=== PATIENT | female | born 1985 | race Hispanic/Latino ===

== ENCOUNTER 2019-12-31 21:02 | Emergency (ER) | payer SELFPAY ==
[~2019-12-31] VITALS: Ht 157.5 cm; Wt 70.8 kg
[2019-12-31] MEDS ORDERED: FAMOTIDINE 20 MG/2 ML VIAL IV STA (21:13)
[2019-12-31] MEDS ORDERED: ONDANSETRON HCL INJ 2MG/ML 2ML 2 MG/ML VIAL IV STA (21:13)
--- NOTE | 2019-12-31 21:22 | Emergency Department Note ---
History of Present Illnes History of Present Illness Chief Complaint: Abdominal Complaints History of Present Illness This is a 34 year old female epigastric pain that started approx 3 days ago with gradual worsening. Patient states she is 7 weeks . C/o nausea and vomiting. A1. . Historian: Patient Arrival Mode: Car Continuous [employer] Supervisor Required: No Onset (how long ago): day(s) (3) Location: epigastric Quality: pain Radiation: Reports non-radiation Severity: moderate Onset quality: gradual Duration (how long): day(s) (3) Timing of current episode: constant Progression: worsening Chronicity: new Context: Reports other (7 weeks gestation); Denies recent illness, Denies recent surgery, Denies trauma/injury, Denies new medications Relieving factors: none Exacerbating factors: eating Associated symptoms: Reports nausea/vomiting Treatments prior to arrival: none Past Medical/Family History Physician Review I have reviewed the patient's past medical and family history. Any updates have been documented here. Past Medical History Recent Fever: No Clinical Suspicion of Infectio: No New/Unexplained Change in Ment: No Past Surgical History: Cholecysctectomy Other Surgery: HERNIA REPAIR Social History Smoking Cessation: Never Smoker Alcohol Use: None Any Illegal Drug Use: No Family History Family history of heart diseas: No Other Last Tetanus: UNK Review of Systems Review of Systems Constitutional: Reports no symptoms EENTM: Reports no symptoms Cardiovascular: Reports no symptoms Respiratory: Reports no symptoms Gastrointestinal: Reports as per HPI Genitourinary: Reports as per HPI Musculoskeletal: Reports no symptoms Integumentary: Reports no symptoms Neurological: Reports no symptoms Psychological: Reports no symptoms Endocrine: Reports no symptoms Hematological/Lymphatic: Reports no symptoms Review of other systems: All other systems negative Physical Exam Related Data Allergies: Coded Allergies: No Known Allergies (Unverified , 07/05/15) Triage Vital Signs Vital Signs Date Time Temp Pulse Resp B/P (MAP) Pulse Ox O2 Delivery O2 Flow Rate FiO2 12/31/19 21:15 98.8 74 20 123/55 100 Room Air Vital signs reviewed: Yes Physical Exam CONSTITUTIONAL Constitutional: Present well-developed, Present well-nourished; Absent distressed HENT HENT: Present normocephalic, Present atraumatic, Present oropharynx clear/moist, Present nose normal HENT L/R: Present left ext ear normal, Present right ext ear normal EYES Eyes: Reports PERRL, Reports conjunctivae normal NECK Neck: Present ROM normal PULMONARY Pulmonary: Present effort normal, Present breath sounds normal CARDIOVASCULAR Cardiovascular: Present regular rhythm, Present heart sounds normal, Present capillary refill normal, Present normal rate GASTROINTESTINAL Abdominal: Present soft, Present bowel sounds normal, Present tender (mild epigastric tenderness) GENITOURINARY Genitourinary: Present exam deferred SKIN Skin: Present warm, Present dry MUSCULOSKELETAL Musculoskeletal: Present ROM normal NEUROLOGICAL Neurological: Present alert, Present oriented x 3, Present no gross motor or sensory deficits PSYCHOLOGICAL Psychological: Present mood/affect normal, Present judgement normal Results Laboratory Laboratory Laboratory Tests Test 12/31/19 21:17 12/31/19 21:00 White Blood Count 7.63 x10e3/uL (4.8-10.8) Red Blood Count 3.90 x10e6/uL (3.6-5.1) Hemoglobin 10.3 g/dL (12.0-16.0) Hematocrit 33.1 % (34.2-44.1) Mean Corpuscular Volume 84.9 fL (81-99) Mean Corpuscular Hemoglobin 26.4 pg (28-32) Mean Corpuscular Hemoglobin Concent 31.1 g/dL (31-35) Red Cell Distribution Width 15.8 % (11.7-14.4) Platelet Count 246 x10e3/uL (140-360) Neutrophils (%) (Auto) 58.6 % (38.7-80.0) Lymphocytes (%) (Auto) 28.6 % (18.0-39.1) Monocytes (%) (Auto) 5.9 % (4.4-11.3) Eosinophils (%) (Auto) 6.0 % (0.0-6.0) Basophils (%) (Auto) 0.5 % (0.0-1.0) Neutrophils # (Auto) 4.5 (2.1-6.9) Lymphocytes # (Auto) 2.2 (1.0-3.2) Monocytes # (Auto) 0.5 (0.2-0.8) Eosinophils # (Auto) 0.5 (0.0-0.4) Basophils # (Auto) 0.0 (0.0-0.1) Absolute Immature Granulocyte (auto 0.03 x10e3/uL (0-0.1) Sodium Level 137 mmol/L (136-145) Potassium Level 3.7 mmol/L (3.5-5.1) Chloride Level 105 mmol/L (98-107) Carbon Dioxide Level 24 mmol/L (22-29) Anion Gap 11.7 mmol/L (8-16) Blood Urea Nitrogen 9 mg/dL (7-26) Creatinine 0.62 mg/dL (0.57-1.11) Estimat Glomerular Filtration Rate > 60 ML/MIN (60-) BUN/Creatinine Ratio 15 (6-25) Glucose Level 94 mg/dL (74-118) Calcium Level 8.7 mg/dL (8.4-10.2) Total Bilirubin 0.2 mg/dL (0.2-1.2) Aspartate Amino Transf (AST/SGOT) 16 IU/L (5-34) Alanine Aminotransferase (ALT/SGPT) 15 IU/L (0-55) Alkaline Phosphatase 48 IU/L (40-150) Total Protein 7.0 g/dL (6.5-8.1) Albumin 3.8 g/dL (3.5-5.0) Globulin 3.2 g/dL (2.3-3.5) Albumin/Globulin Ratio 1.2 (0.8-2.0) Amylase Level 68 U/L (25-125) Lipase 32 U/L (8-78) Urine Color Yellow (YELLOW) Urine Clarity Sl cloudy (CLEAR) Urine pH 7 (5 - 7) Urine Specific [place] 1.025 (1.010-1.025) Urine Protein Negative (NEGATIVE) Urine Glucose (UA) Negative (NEGATIVE) Urine Ketones Negative (NEGATIVE) Urine Blood Negative (NEGATIVE) Urine Nitrite Negative (NEGATIVE) Urine Bilirubin Negative (NEGATIVE) Urine Urobilinogen 0.2 mg/dL (0.2 - 1) Urine Leukocyte Esterase Trace (NEGATIVE) Urine RBC 0-5 /HPF (0-5) Urine WBC 11-20 /HPF (0-5) Urine Epithelial Cells Many /LPF (NONE) Urine Bacteria Moderate /HPF (NONE) Lab results reviewed: Yes Assessment & Plan Medical Decision Making MDM pt with epigastric pain, n/v cbc, cmp, amylase, lipase, ua, ordered to eval for elevated lft's, pancreatitis, electrolyte abnormality, uti pepcid 20 mg iv ordered zofran 4 mg iv ordered Assessment & Plan Final Impression: (1) Gastritis (2) UTI (urinary tract infection) Last Vital Signs Date Time Temp Pulse Resp B/P (MAP) Pulse Ox O2 Delivery O2 Flow Rate FiO2 12/31/19 21:15 98.8 74 20 123/55 100 Room Air Home Meds No Active Prescriptions or Reported Meds Medications in the ED Famotidine 20 mg NOW STAT IV ; Start 12/31/19 at 21:13; Stop 12/31/19 at 21:14; Status UNV Ondansetron HCl 4 mg NOW STAT IV ; Start 12/31/19 at 21:13; Stop 12/31/19 at 21:14; Status UNV ESCOBAR ESTRADA MD Dec 31, 2019 21:22
[2019-12-31 21:25] LABS: BASOPHILS % 0.5 % (0.0-1.0); EOSINOPHILS # (AUTO) 0.5 (0.0-0.4); HEMATOCRIT 33.1 % (34.2-44.1); HEMOGLOBIN 10.3 g/dL (12.0-16.0); LYMPHOCYTES # (AUTO) 2.2 (1.0-3.2); LYMPHOCYTES % 28.6 % (18.0-39.1); MEAN CORPUSCULAR HEMOGLOBIN 26.4 pg (28-32); MEAN CORPUSCULAR HGB CONC 31.1 g/dL (31-35); MEAN CORPUSCULAR VOLUME 84.9 fL (81-99); MONOCYTES # (AUTO) 0.5 (0.2-0.8); MONOCYTES % 5.9 % (4.4-11.3); NEUTROPHILS # (AUTO) 4.5 (2.1-6.9); NEUTROPHILS % 58.6 % (38.7-80.0); PLATELET COUNT 246 x10e3/uL (140-360); RED CELL DISTRIBUTION WIDTH 15.8 % (11.7-14.4)
[2019-12-31 21:29] LABS: BILIRUBIN,URINE NEGATIVE (NEGATIVE); CLARITY,URINE SL CLOUDY (CLEAR); COLOR,URINE YELLOW (YELLOW); KETONES,URINE NEGATIVE (NEGATIVE); LEUKOCYTE ESTERASE ,URINE TRACE (NEGATIVE); NITRITE,URINE NEGATIVE (NEGATIVE); PROTEIN,URINE DIPSTICK NEGATIVE (NEGATIVE); URINE UROBILINOGEN 0.2 mg/dL (0.2 - 1)
[2019-12-31 21:36] LABS: BACTERIA,URINE MODERATE /HPF; EPITHELIAL CELLS,URINE MANY /LPF; RBC,URINE 0-5 /HPF (0-5)
[2019-12-31 21:44] LABS: ALANINE AMINOTRANSFERASE 15 IU/L (0-55); ALBUMIN 3.8 g/dL (3.5-5.0); ALBUMIN/GLOBULIN RATIO 1.2 (0.8-2.0); ALKALINE PHOSPHATASE 48 IU/L (40-150); ANION GAP 11.7 mmol/L (8-16); BLOOD UREA NITROGEN 9 mg/dL (7-26); BUN/CREATININE RATIO 15 (6-25); CALCIUM 8.7 mg/dL (8.4-10.2); CARBON DIOXIDE 24 mmol/L (22-29); CHLORIDE 105 mmol/L (98-107); CREATININE, SERUM 0.62 mg/dL (0.57-1.11); EST GLOMERULAR FILTRATION RATE > 60 ML/MIN (60-); GLUCOSE 94 mg/dL (74-118); POTASSIUM 3.7 mmol/L (3.5-5.1); SODIUM 137 mmol/L (136-145)
[2019-12-31 21:50] LABS: AMYLASE 68 U/L (25-125); LIPASE 32 U/L (8-78)
--- OUTSIDE RECORDS SUMMARY | 2020-01-01 09:24 | XMS REPORT | Clinical Summary ---
Author Author [facility] Organization [facility] Address Unknown Phone Unavailable Care Team Providers Care Medical Officer Name Role Phone Asked, No Pcp PCP Unavailable Allergies No Known Active Allergies Medications No known medications Active Problems Not on file Surgical History Surgery Date Site/Laterality Comments HERNIA REPAIR Medical History Medical History Date Comments H. pylori infection Social History Date Tobacco Use Types Packs/Day Years Used Never Assessed Sex Assigned at Date Recorded Not on file Last Filed Vital Signs Not on file Plan of Treatment Health Maintenance Due Date Last Done Comments CERVICAL CANCER SCREENING 2005 INFLUENZA VACCINE 10/13/2019 Results Not on fileafter 12/31/2018 Advance Directives For more information, please contact: [phone] Patient Recovery Room Rn Explanation Type Date Recorded Advance Directives, Living Will and Medical Power of Barbering Teacher
--- OUTSIDE RECORDS SUMMARY | 2020-01-01 09:25 | XMS REPORT | Continuity of Care Document ---
Author Author [facility] t Organization [facility] Address [address] [place] [address] Phone Unavailable Care Team Providers Care Winemaker Name Role Phone NO, PCP PCP Unavailable Marco A CAPONE, Josseline Rodríguez Attphys Doctor Unassigned, Name No Attphys Unavailable Payers Payer Name Policy Type Policy Number Effective Date Expiration Date S ource Self Pay NA [facility] Problems Condition Name Condition Details Condition Category Status Onset Date Resolution Date Last Treatment Date Treating Clinician Comments Source Gastritis Problem Active [facility] Urinary tract infection Problem Active [facility] Allergies, Adverse Reactions, Alerts Allergy Name Allergy Type Status Severity Reaction(s) Onset Date Inacti ve Date Treating Clinician Comments Source No Known Allergies DA Active U 2019-08-08 00:00:00 [facility] No Known Allergies DA Active U 2019-07-24 00:00:00 [facility] No Known Allergies DA Active U 2015-08-04 00:00:00 [facility] Social History Social Habit Start Date Stop Date Quantity Comments Source Sex Assigned At Alanis Perez Medications This patient has no known medications. Vital Signs Vital Name Observation Time Observation Value Comments Source Weight 2019-12-31 21:15:00 156 [lb_av] [facility] BMI (Body Mass Index) 2019-12-31 21:15:00 28.5 kg/m2 [facility] Procedures This patient has no known procedures. Plan of Care Planned Activity Planned Date Details Comments Source Future Scheduled Test 2019-10-13 00:00:00 INFLUENZA VACCINE [code = INFLUENZA VACCINE] Vince Perez Future Scheduled Test 2005 00:00:00 Screening for raul gnant neoplasm of cervix (procedure) [code = 472934479] Vince Castano t Instructions Heartburn [facility] Instructions Urinary Tract Infection - Women [facility] Encounters Start Date/Time End Date/Time Encounter Type Admission Type Attendi [facility] Care Department Encounter ID Source 2019-12-31 21:07:00 2019-12-31 22:34:00 Departed Emergency Room [facility] [id number] [facility] 2019-12-18 08:46:41 2019-12-18 10:50:38 Initial Visit Anne Strickland [facility] [employer]ULPER OPERATOR [facility] [id number] 2019-12-18 00:00:00 2019-12-18 00:00:00 Orders Only D octor Unassigned, [place] [id number] 2019-10-23 00:00:00 2019-10-23 00:00:00 Telephone Anne Strickland [facility]UL[employer] OPERATOR [facility] [id number] Results Test Description Test Time Test Comments Results Result Comments Source Blood leukocytes automated count (number/volume) 2019-12-31 21:17:00 Test Item White Blood Count (test code = 6690-2) 7.63 4.8-10.8 [facility] count (number/volume)2019-12-31 21:17:00* Test Item Value Reference Range Interpretation Comments Red Blood Count (test code = 789-8) 3.90 3.6-5.1 [facility] hemoglobin measurement (moles/volume)2019-12-31 21:17:00* Test Item Value Reference Range Interpretation Comments Hemoglobin (test code = 49255-8) 10.3 12.0-16.0 [facility] CenterAutomated blood hematocrit (volume fraction)2019-12-31 21:17:00* Test Item Value Reference Range Interpretation Comments Hematocrit (test code = 4544-3) 33.1 34.2-44.1 [facility] CenterAutomated erythrocyte mean corpuscular sdkdkx8422-10-46 21:17:00* Test Item Value Reference Range Interpretation Comments Mean Corpuscular Volume (test code = 787-2) 84.9 81-99 [facility] CenterAutomated erythrocyte mean corpuscular hemoglobin (mass per erythrocyte)2019-12-31 21:17:00* Test Item Value Reference Range Interpretation Comments Mean Corpuscular Hemoglobin (test code = 785-6) 26.4 28-32 [facility] CenterAutomated erythrocyte mean corpuscular hemoglobin concentration measurement (mass/volume)2019-12-31 21:17:00* Test Item Value Reference Range Interpretation Comments Mean Corpuscular Hemoglobin Concent (test code = 786-4) 31.1 31-35 [facility] CenterRDW TazFz-Pyq1471-76-19 21:17:00* Test Item Value Reference Range Interpretation Comments Red Cell Distribution Width (test code = 42151-9) 15.8 11.7 -14.4 [facility] CenterAutomated blood platelet count (count/volume)2019-12-31 21:17:00* Test Item Value Reference Range Interpretation Comments Platelet Count (test code = 777-3) 246 140-360 [facility] CenterAutomated blood segmented neutrophil count as percentage of total klvfvgarwz9605-92-43 21:17:00* Test Item Value Reference Range Interpretation Comments Neutrophils (%) (Auto) (test code = 33287-3) 58.6 38.7-80.0 [facility] CenterAutomated blood lymphocyte count as percentage ot total zjttcfprlv4769-55-62 21:17:00* Test Item Value Reference Range Interpretation Comments Lymphocytes (%) (Auto) (test code = 736-9) 28.6 18.0-39.1 [facility] CenterAutomated blood monocyte count as percentage of total zhtwntlprb6052-19-32 21:17:00* Test Item Value Reference Range Interpretation Comments Monocytes (%) (Auto) (test code = 5905-5) 5.9 4.4-11.3 [facility] CenterAutomated blood eosinophil count as percentage of total idscqzcygf2223-91-56 21:17:00* Test Item Value Reference Range Interpretation Comments Eosinophils (%) (Auto) (test code = 713-8) 6.0 0.0-6.0 [facility] CenterAutomated blood basophil count as percentage of total bmdzxmyxox4711-11-89 21:17:00* Test Item Value Reference Range Interpretation Comments Basophils (%) (Auto) (test code = 706-2) 0.5 0.0-1.0 [facility] CenterFluoroscopic procedure less than one hour hlsordof2349-20-35 21:17:00* Test Item Value Reference Range Interpretation Comments IM GRANULOCYTES % (test code = IM GRANULOCYTES %) 0.4 0.0- 1.0 [facility] count 2019-12-31 21:17:00* Test Item Value Reference Range Interpretation Comments Neutrophils # (Auto) (test code = 751-8) 4.5 2.1-6.9 [facility] CenterBlood lymphocytes count (number/volume) 2019-12-31 21:17:00* Test Item Value Reference Range Interpretation Comments Lymphocytes # (Auto) (test code = 56291-3) 2.2 1.0-3.2 [facility] CenterBlood monocytes automated count (number/volume)2019-12-31 21:17:00* Test Item Value Reference Range Interpretation Comments Monocytes # (Auto) (test code = 742-7) 0.5 0.2-0.8 [facility] CenterAutomated blood eosinophil count 2019-12-31 21:17:00* Test Item Value Reference Range Interpretation Comments Eosinophils # (Auto) (test code = 711-2) 0.5 0.0-0.4 [facility] CenterAutomated blood basophil count (count/volume)2019-12-31 21:17:00* Test Item Value Reference Range Interpretation Comments Basophils # (Auto) (test code = 704-7) 0.0 0.0-0.1 [facility] CenterFluoroscopic procedure less than one hour bgwhteiv4687-85-28 21:17:00* Test Item Value Reference Range Interpretation Comments Absolute Immature Granulocyte (auto (cristina t code = Absolute Immature Granulocyte (auto) 0.03 0-0.1 [facility] sodium measurement (moles/volume)2019-12-31 21:17:00* Test Item Value Reference Range Interpretation Comments Sodium Level (test code = 2951-2) 137 136-145 [facility]er[facility] plasma potassium measurement (moles/volume)2019-12-31 21:17:00* Test Item Value Reference Range Interpretation Comments Potassium Level (test code = 2823-3) 3.7 3.5-5.1 [facility] plasma chloride measurement (moles/volume)2019-12-31 21:17:00* Test Item Value Reference Range Interpretation Comments Chloride Level (test code = 2075-0) 105 98-107 [facility]erum or plasma carbon dioxide, total measurement (moles/volume)2019-12-31 21:17:00* Test Item Value Reference Range Interpretation Comments Carbon Dioxide Level (test code = 2028-9) 24 22-29 [facility]erum or plasma anion mpp2889-03-96 21:17:00* Test Item Value Reference Range Interpretation Comments Anion Gap (test code = 92915-7) 11.7 8-16 [facility] plasma urea nitrogen measurement (mass/volume)2019-12-31 21:17:00* Test Item Value Reference Range Interpretation Comments Blood Urea Nitrogen (test code = 3094-0) 9 7-26 [facility]er[facility] or plasma creatinine measurement (mass/volume)2019-12-31 21:17:00* Test Item Value Reference Range Interpretation Comments Creatinine (test code = 2160-0) 0.62 0.57-1.11 [facility]er[facility] or plasma urea nitrogen/creatinine mass oieoe5911-48-87 21:17:00* Test Item Value Reference Range Interpretation Comments BUN/Creatinine Ratio (test code = 3097-3) 15 6-25 [facility] CenterEstimated glomerular filtration rate (GFR) dqubcxakidsag8771-24-05 21:17:00* Test Item Value Reference Range Interpretation Comments Estimat Glomerular Filtration Rate (test code = 358004333) > 60 >60 Ranges were taken from the National Kidney Disease Education Program and the [facility] literature.Reference ranges:60 or greater: Vygkkb53-13 ( for 3 consecutive months): Chronic kidney disease 15 or less: Kidney failureP[facility] Medical CenterGlucose bpjpmtqthma1234-62-07 21:17:00* Test Item Value Reference Range Interpretation Comments Glucose Level (test code = KAB4171) 94 74-118 [facility]er[facility] or plasma calcium measurement (mass/volume)2019-12-31 21:17:00* Test Item Value Reference Range Interpretation Comments Calcium Level (test code = 14811-4) 8.7 8.4-10.2 [facility]er[facility] plasma total bilirubin measurement (mass/volume)2019-12-31 21:17:00* Test Item Value Reference Range Interpretation Comments Total Bilirubin (test code = 1975-2) 0.2 0.2-1.2 [facility] CenterFluoroscopic procedure less than one hour fviylyjf6983-45-86 21:17:00* Test Item Value Reference Range Interpretation Comments Aspartate Amino Transf (AST/SGOT) (test code = Aspartate Amino Transf (AST/SGOT)) 16 5-34 [facility]erum or plasma alanine aminotransferase measurement (enzymatic activity/volume)2019-12-31 21:17:00* Test Item Value Reference Range Interpretation Comments Alanine Aminotransferase (ALT/SGPT) (test code = 1742-6) 15 0-55 [facility]erum or plasma protein measurement (mass/volume)2019-12-31 21:17:00* Test Item Value Reference Range Interpretation Comments Total Protein (test code = 2885-2) 7.0 6.5-8.1 [facility]erum or plasma albumin measurement (mass/volume)2019-12-31 21:17:00* Test Item Value Reference Range Interpretation Comments Albumin (test code = 1751-7) 3.8 3.5-5.0 [facility] CenterPlasma globulin measurement (mass/volume) 2019-12-31 21:17:00* Test Item Value Reference Range Interpretation Comments Globulin (test code = 20557-3) 3.2 2.3-3.5 [facility]erum or plasma albumin/globulin mass hwagz8243-49-12 21:17:00* Test Item Value Reference Range Interpretation Comments Albumin/Globulin Ratio (test code = 1759-0) 1.2 0.8-2.0 [facility] Hospitalerum or plasma alkaline phosphatase measurement (enzymatic activity/volume)2019-12-31 21:17:00* Test Item Value Reference Range Interpretation Comments Alkaline Phosphatase (test code = 6768-6) 48 40-150 [facility]erum or plasma amylase measurement (enzymatic activity/volume)2019-12-31 21:17:00* Test Item Value Reference Range Interpretation Comments Amylase Level (test code = 1798-8) 68 25-125 [facility]erum or plasma lipase measurement (enzymatic activity/volume)2019-12-31 21:17:00* Test Item Value Reference Range Interpretation Comments Lipase (test code = 3040-3) 32 8-78 [facility] CenterUrine color rhekqihchhgvu0625-89-06 21:00:00* Test Item Value Reference Range Interpretation Comments Urine Color (test code = 5778-6) YELLOW YELLOW [facility] CenterUrine djqlnlt2410-40-19 21:00:00* Test Item Value Reference Range Interpretation Comments Urine Clarity (test code = 25438-9) SL CLOUDY CLEAR [facility] Hospitalpecific gravity of Urine by Test strip 2019-12-31 21:00:00* Test Item Value Reference Range Interpretation Comments Urine Specific [place] (test code = 5811-5) 1.025 1.010-1.02 5 [facility] CenterUrine pH measurement by automated test mhwqg3173-57-40 21:00:00* Test Item Value Reference Range Interpretation Comments Urine pH (test code = 92470-7) 7 5-7 [facility] CenterUrine leukocyte esterase detection by mwxahsdo0208-89-00 21:00:00* Test Item Value Reference Range Interpretation Comments Urine Leukocyte Esterase (test code = 5799-2) TRACE NEGATIVE [facility] CenterUrine nitrite khvnwthth2987-62-55 21:00:00* Test Item Value Reference Range Interpretation Comments Urine Nitrite (test code = 59716-5) NEGATIVE NEGATIVE [facility] CenterUrine protein measurement by test strip (mass/volume)2019-12-31 21:00:00* Test Item Value Reference Range Interpretation Comments Urine Protein (test code = 5804-0) NEGATIVE NEGATIVE [facility] CenterUrine glucose rnkpsppvp2971-70-88 21:00:00* Test Item Value Reference Range Interpretation Comments Urine Glucose (UA) (test code = 2349-9) NEGATIVE NEGATIVE [facility] CenterUrine ketones detection by automated test ljcdf2116-03-88 21:00:00* Test Item Value Reference Range Interpretation Comments Urine Ketones (test code = 09099-5) NEGATIVE NEGATIVE [facility] CenterUrine urobilinogen measurement by test strip (mass/volume)2019-12-31 21:00:00* Test Item Value Reference Range Interpretation Comments Urine Urobilinogen (test code = 54648-2) 0.2 0.2-1 [facility] CenterUrine total bilirubin measurement (mass/volume)2019-12-31 21:00:00* Test Item Value Reference Range Interpretation Comments Urine Bilirubin (test code = 1978-6) NEGATIVE NEGATIVE [facility] CenterUrine erythrocytes kxbcxxyvx8643-97-03 21:00:00* Test Item Value Reference Range Interpretation Comments Urine Blood (test code = 57227-3) NEGATIVE NEGATIVE [facility] CenterAutomated urine sediment leukocyte count by microscopy (number/high power field)2019-12-31 21:00:00* Test Item Value Reference Range Interpretation Comments Urine WBC (test code = 5821-4) 11-20 0-5 [facility] CenterErythrocytes detection in urine sediment by light qcefzlxjjs9745-75-88 21:00:00* Test Item Value Reference Range Interpretation Comments Urine RBC (test code = 49943-4) 0-5 0-5 [facility] CenterBacteria detection in urine sediment by light ibapikkdha4966-17-34 21:00:00* Test Item Value Reference Range Interpretation Comments Urine Bacteria (test code = 89085-0) MODERATE NONE [facility] CenterEpithelial cells detection in urine sediment by light wlybdpzkck9862-25-95 21:00:00* Test Item Value Reference Range Interpretation Comments Urine Epithelial Cells (test code = 88675-6) MANY NONE [facility]- DUP AB/PEL/SC/[id number] 20:22:00 Name: SAULJADE [facility] : 1985 Age/S: 34 / F [address] [place] [address] Blvd Unit #: [id number] Loc: ALEXANDER Ervin [address] Phys: Winifred Gomez [employer]PER[employer] Acct: [id number] Di s Date: Status: REG ER PHONE #: Exam Date: 10/17/20192013 FAX #: Reason: see US PREG 1st TRIMTR EXAMS: CPT CODE: [id number] DUP AB/PEL/SC /LTD 55655 PROCEDURE: PELVIC ULTRASO UND INDICATION: 6 weeks with vaginal bleeding. Pelvic cr amping. COMPARISON: 10/07/2019 ultrasound T RANSABDOMINAL SCAN: Uterus measures 7.6 x 5.4 x 5.[address] ripe thickness of 0.7 cm. Right ovary appears normal measuring 2.9 x 2.1 x 1.6 cm. Left ovary appears normal measuring 2.7 x 0.9 x 2.3 cm. Arteri al waveforms are documented to both ovaries. No adnexal mass identified. TRANSVAGINAL SCAN: Transvaginal exam was performed for better visualization of the pelvic structures. No free pelvic fluid is seen. The uterus measures 9.7 x 5.3 x 6.3 cm with endometrial stripe thickness o f 1.2 cm. No intrauterine is identified. The right ovary appea rs normal measuring 3 x 2 x 3 cm with arterial waveforms documented. Left ovary is not visualized. No adnexal mass identified. IMP RESSION: Normal pelvic ultrasound. No intrauterine or extrauterine preg jonnathan identified. Correlate with trend of quantitative beta-hCG levels. SL: SG-H at 2021 Reported and signed by: Krishna Carreon M.D. CC: [facility]; Julee Gomez Technologist: Aspen Kerns RDMS(AB)(OB) Trnscb Date/Time: 10/16 (2021) [id number] Orig Print D/T: S: 10/17/2019 () Probe: PAGE 1 Signed Report - US PELVIS [id number] 20:22:00 Name: SAULJADE [facility] : 1985 Age/S: 34 / F [address] [place], [place] [address]vd Unit #: [id number] Loc: ALEXANDER Ervin [address] Phys: Winifred Gomez Acct: [id number] Di s Date: Status: REG ER PHONE #: Exam Date: 10/17/20192012 FAX #: Reason: VAGINAL BLEEDING/CRAMPING EXAMS: CPT CODE: [id number] US PELVIS COM PLETE [id number] PROCEDURE: PELVIC ULTRASO UND INDICATION: 6 weeks with vaginal bleeding. Pelvic cr amping. COMPARISON: 10/07/2019 ultrasound T RANSABDOMINAL SCAN: Uterus measures 7.6 x 5.4 x 5.[address] ripe thickness of 0.7 cm. Right ovary appears normal measuring 2.9 x 2.1 x 1.6 cm. Left ovary appears normal measuring 2.7 x 0.9 x 2.3 cm. Arteri al waveforms are documented to both ovaries. No adnexal mass identified. TRANSVAGINAL SCAN: Transvaginal exam was performed for better visualization of the pelvic structures. No free pelvic fluid is seen. The uterus measures 9.7 x 5.3 x 6.3 cm with endometrial stripe thickness o f 1.2 cm. No intrauterine is identified. The right ovary appea rs normal measuring 3 x 2 x 3 cm with arterial waveforms documented. Left ovary is not visualized. No adnexal mass identified. IMP RESSION: Normal pelvic ultrasound. No intrauterine or extrauterine preg jonnathan identified. Correlate with trend of quantitative beta-hCG levels. SL: SG-H at 2021 Reported and signed by: Krishna Carreon M.D. CC: [facility]; Julee Gomez Technologist: Aspen Kerns RDMS(AB)(OB) Trnscb Date/Time: 10/16 (2021) [id number] Orig Print D/T: S: 10/17/2019 () Probe: PAGE 1 Signed Report - US TRANSVAGINAL NON [id number] 20:22:00 Name: JADE HUGHES [facility] : 1985 Age/S: 34 / F [address] [place] [address] Blvd Unit #: [id number] Loc: ALEXANDER Ervin [address] Phys: Winifred Gomez Acct: [id number] Di s Date: Status: REG ER PHONE #: Exam Date: 10/17/20192013 FAX #: [phone] Reason: see US PREG 1st TRIMTR EXAMS: CPT CODE: [id number] [place] [id number] PROCEDURE: PELVIC ULTRASO UND INDICATION: 6 weeks with vaginal bleeding. Pelvic cr amping. COMPARISON: 10/07/2019 ultrasound T RANSABDOMINAL SCAN: Uterus measures 7.6 x 5.4 x 5.[address] ripe thickness of 0.7 cm. Right ovary appears normal measuring 2.9 x 2.1 x 1.6 cm. Left ovary appears normal measuring 2.7 x 0.9 x 2.3 cm. Arteri al waveforms are documented to both ovaries. No adnexal mass identified. TRANSVAGINAL SCAN: Transvaginal exam was performed for better visualization of the pelvic structures. No free pelvic fluid is seen. The uterus measures 9.7 x 5.3 x 6.3 cm with endometrial stripe thickness o f 1.2 cm. No intrauterine is identified. The right ovary appea rs normal measuring 3 x 2 x 3 cm with arterial waveforms documented. Left ovary is not visualized. No adnexal mass identified. IMP RESSION: Normal pelvic ultrasound. No intrauterine or extrauterine preg jonnathan identified. Correlate with trend of quantitative beta-hCG levels. SL: SG-H at 2021 Reported and signed by: Krishna Carreon M.D. CC: [facility]; Julee Gomez Technologist: Aspen Kerns RDMS()(OB) Trnscb Date/Time: 10/16 (2021) [id number] Orig Print D/T: S: 10/17/2019 () Probe: [id number] PAGE 1 Signed Report COMPREHENSIVE METABOLIC [id number] 20:05:00* Test Item Value Reference Range Interpretation Comments SODIUM (test code = NA) 139 mEq/L 134-147 N POTASSIUM (test code = K) 3.6 mEq/L 3.4-5.0 N CHLORIDE (test code = CL) 107 mEq/L 100-108 N CARBON DIOXIDE (test code = CO2) 28 mEq/L 21-33 N ANION GAP (test code = GAP) 8 0-20 N GLUCOSE (test code = GLU) 76 mg/dL 70-110 N BLOOD UREA NITROGEN (test code = BUN) 14 mg/dL 7-18 N GLOMERULAR FILTRATION RATE (test code = GFR) 113.8 105-110 H Units of measure = ml/min/1.73 m2 CREATININE (test code = CREAT) 0.6 mg/dL 0.6-1.3 N TOTAL PROTEIN (test code = PROT) 7.4 g/dL 6.4-8.2 N ALBUMIN (test code = ALB) 3.70 g/dL 3.4-5.0 N CALCIUM (test code = CA) 8.4 mg/dL 8.0-10.5 N BILIRUBIN TOTAL (test code = BILT) 0.4 MG/DL <1.5 N SGOT/AST (test code = AST) 17 IUnit/L 15-37 N SGPT/ALT (test code = ALT) 29 IUnit/L 15-65 N ALKALINE PHOSPHATASE TOTAL (test code = ALKP) 57 IUnit/L 20-125 N Is patient ? YHOW MANY WEEKS? 6 WEEKSHCG [id number] 20:05:00* Test Item Value Reference Range Interpretation Comments HCG SERUM (test code = HCG) 334 0 - 6 NOT > 6 SUGGESTIVE OF EARLY RISES TWO FOLD EVERY 2 DAYS; SUGGEST RE CONFIRMING AFTER 2 DAYS. 150,000-200,[address] TRIMESTER 10,000 - 50,000 2ND & 3RD TRIMESTERResults in willie-International Units/mL Is patient ? YHOW MANY WEEKS? 6 WEEKSCOMPREHENSIVE METABOLIC PANEL 2019-10-17 19:59:00* Test Item Value Reference Range Interpretation Comments SODIUM (test code = NA) 139 mEq/L 134-147 N POTASSIUM (test code = K) 3.6 mEq/L 3.4-5.0 N CHLORIDE (test code = CL) 107 mEq/L 100-108 N CARBON DIOXIDE (test code = CO2) 28 mEq/L 21-33 N ANION GAP (test code = GAP) 8 0-20 N GLUCOSE (test code = GLU) 76 mg/dL 70-110 N BLOOD UREA NITROGEN (test code = BUN) 14 mg/dL 7-18 N GLOMERULAR FILTRATION RATE (test code = GFR) 105-110 CREATININE (test code = CREAT) mg/dL 0.6-1.3 TOTAL PROTEIN (test code = PROT) g/dL 6.4-8.2 ALBUMIN (test code = ALB) g/dL 3.4-5.0 CALCIUM (test code = CA) 8.4 mg/dL 8.0-10.5 N BILIRUBIN TOTAL (test code = BILT) MG/DL <1.5 SGOT/AST (test code = AST) IUnit/L 15-37 SGPT/ALT (test code = ALT) IUnit/L 15-65 ALKALINE PHOSPHATASE TOTAL (test code = ALKP) IUnit/L 20-125 Is patient ? YHOW MANY WEEKS? 6 WEEKSHCG [id number] 19:59:00* Test Item Value Reference Range Interpretation Comments HCG SERUM (test code = HCG) Is patient ? YHOW MANY WEEKS? 6 WEEKSCBC W/AUTO [id number] 19:43:00 * Test Item Value Reference Range Interpretation Comments WHITE BLOOD CELL (test code = WBC) 6.85 x10 3/uL 4.5-11.0 N RED BLOOD CELL (test code = RBC) 3.70 x10 6/uL 3.54-5.02 N HEMOGLOBIN (test code = HGB) 9.9 g/dL 11.0-15.0 L HEMATOCRIT (test code = HCT) 32.9 % 33.0-45.0 L MEAN CELL VOLUME (test code = MCV) 88.9 fL 81.0-99.0 N MEAN CELL HGB (test code = MCH) 26.8 pg 27.0-33.0 L MEAN CELL HGB CONCETRATION (test code = MCHC) 30.1 g/dL 33.0-37. 0 L RED CELL DISTRIBUTION WIDTH CV (test code = RDW) 15.0 % 11.5- 14.5 H RED CELL DISTRIBUTION WIDTH SD (test code = RDW-SD) 48.2 fL 37 .0-54.0 N PLATELET COUNT (test code = PLT) 279 x10 3/uL 150-400 N MEAN PLATELET VOLUME (test code = MPV) 11.5 fL 7.0-9.0 H NEUTROPHIL % (test code = NT%) 60.5 % 56.0-77.0 N IMMATURE GRANULOCYTE % (test code = IG%) 0.6 % 0.0-2.0 N LYMPHOCYTE % (test code = LY%) 28.9 % 14.0-32.0 N MONOCYTE % (test code = MO%) 7.3 % 4.8-9.0 N EOSINOPHIL % (test code = EO%) 2.3 % 0.3-3.7 N BASOPHIL % (test code = BA%) 0.4 % 0.0-2.0 N NUCLEATED RBC % (test code = NRBC%) 0.0 % 0-0 N NEUTROPHIL # (test code = NT#) 4.14 x10 3/uL 2.0-7.6 N IMMATURE GRANULOCYTE # (test code = IG#) 0.04 x10 3/uL 0.00-0.03 H LYMPHOCYTE # (test code = LY#) 1.98 x10 3/uL 1.0-3.8 N MONOCYTE # (test code = MO#) 0.50 x10 3/uL 0.1-0.8 N EOSINOPHIL # (test code = EO#) 0.16 x10 3/uL 0.0-0.2 N BASOPHIL # (test code = BA#) 0.03 x10 3/uL 0.0-0.2 N NUCLEATED RBC # (test code = NRBC#) 0.00 x10 3/uL 0.0-0.1 N MANUAL DIFF REQUIRED (test code = MDIFF) NO - DUP AB/PEL/SC [id number] 17:33:00 Name: JADE HUGHES [facility] : 1985 Age/S: 34 / F [address] [facility] Unit #: [id number] Loc: [place] [address] Phys: Roya Carpenter NP Acct: [id number] Dis Date: Status: REG ER PHONE #: [phone] Exam Date: 10/07/2019 1701 FAX #: [phone] Reason: PELVIC PAIN EXAMS: CPT CODE: [id number] DUP AB/PEL/SC COMP 67381 REASON FOR EXAM: VAGINAL BLEEDING/PELVIC PAIN EXAM ORDER DATE: 10/07/2019 4:04 PM Attending Stefano: Roya Carpenter NP PROCEDURE: - US PREG 1ST TRIMTR, - US PREG UT TRANSVAGINAL, - DUP AB/PEL/SC COMP Technique: Grayscale images, color doppler, and spectral doppler images of the uterus and ovaries were obtained utilizing A transabdominal and transvaginal approach. Comparison study: CT abdomen and pelvis August 08, 2019 FINDINGS: Uterus: size: 10.2 x 5.7 x 6.7 cm using transabdominal measurements Round hypoechogenicity in the endometrial canal measuring 4.9 mm in size is present and may correspond to a gestational sac. Right ovary: size: 3.7 x 2.2 x 3.4 cm cysts/masses: None Doppler findings: Normal arterial and venous waveforms. adnexal masses: None Left ovary: Not visualized however no mass or collection is seen in the left adnexa Free fluid: No fluid seen in the cul-de-sac. IMPRESSION: Intrauterine with estimated gestational age 5 weeks +/-3 days. Location: at 1733 Reported and signed by: Nolan Moraes MD PAGE 1 Signed Report (CONTINUED) Name: JADE HUGHES [facility] : 1985 Age/S: 34 / F [address] [facility] Unit #: [id number] Loc: [place] [address] P hys: Roya Carpenter NP Acct: V [id number] Dis Date: Status: REG ER PHONE #: [phone] Exam Date: 10/07/2019 1701 F AX #: [phone] Reason: PELVIC PAIN EXAMS: CPT CODE: [id number] DUP AB/PEL/SC COMP 30940 <Continued> CC: Patrick Woodward NP; Roya Carpenter NP; Jessica Brooke MD Technologist: Evelina Noonan [facility] Trnhib Date/Time: 10/07/2019 (173) [email or web address] Orig Print D/T: S: 10/07/2019 (173) Probe: PAGE 2 Signed Report - US PREG UT TRANSVAGINAL 2019-10-07 17:33:00 Name: JADE HUGHES [facility] : 1985 Age/S: 34 / F [address] [facility] Unit #: [id number] Loc: [place], [place] [address] Phys: Roya Carpenter SPONGE HOOKER Acct: [id number] Dis Date: Status: REG ER PHONE #: [phone] Exam Date: 10/07/2019 1701 FAX #: [phone] Reason: PELVIC PAIN EXAMS: CPT CODE: [id number] US PREG UT TRANSVAGINAL 90413 REASON FOR EXAM: VAGINAL BLEEDING/PELVIC PAIN EXAM ORDER DATE: 10/07/2019 4:04 PM Attending Stefano: Roya Carpenter NP PROCEDURE: - US PREG 1ST TRIMTR, - US PREG UT TRANSVAGINAL, - DUP AB/PEL/SC COMP Technique: Grayscale images, color doppler, and spectral doppler images of the uterus and ovaries were obtained utilizing A transabdominal and transvaginal approach. Comparison study: CT abdomen and pelvis August 08, 2019 FINDINGS: Uterus: size: 10.2 x 5.7 x 6.7 cm using transabdominal measurements Round hypoechogenicity in the endometrial canal measuring 4.9 mm in size is present and may correspond to a gestational sac. Right ovary: size: 3.7 x 2.2 x 3.4 cm cysts/masses: None Doppler findings: Normal arterial and venous waveforms. adnexal masses: None Left ovary: Not visualized however no mass or collection is seen in the left adnexa Free fluid: No fluid seen in the cul-de-sac. IMPRESSION: Intrauterine with estimated gestational age 5 weeks +/-3 days. Location: at 1733 Reported and signed by: Nolan Moraes MD PAGE 1 Signed Report (CONTINUED) Name: JADE HUGHES [facility] : 1985 Age/S: 34 / F [address] [facility] Unit #: [id number] Loc: [place] [address] Phys: Roya Carpenter SPONGE HOOKER Acct: V [id number] Dis Date: Status: REG ER PHONE #: [phone] Exam Date: 10/07/2019 1701 F AX #: [phone] Reason: PELVIC PAIN EXAMS: CPT CODE: [id number] US PREG UT TRANSVAGINAL 55196 <Continued> CC: Patrick Woodward NP; Roya Carpenter NP; Jessica Brooke MD Technologist: Evelina Noonan [facility] [place] Trnscb Date/Time: 10/07/2019 (1732) [email or web address] Orig Print D/T: S: 10/07/2019 (173) Probe: [id number] PAGE 2 Signed Report - US PREG 1ST TRIMTR 2019-10-07 17:33:00 Name: JADE HUGHES [facility] : 1985 Age/S: 34 / F [address] [facility] Unit #: [id number] Loc: [place] [address] Phys: Roya Carpenter NP Acct: [id number] Dis Date: Status: REG ER PHONE #: [phone] Exam Date: 10/07/2019 1701 FAX #: [phone] Reason: VAGINAL BLEEDING/PELVIC PAIN EXAMS: CPT CODE: [id number] US PREG 1ST TRIMTR 76593 REASON FOR EXAM: VAGINAL BLEEDING/PELVIC PAIN EXAM ORDER DATE: 10/07/2019 4:04 PM Attending Stefano: Roya Carpenter NP PROCEDURE: - US PREG 1ST TRIMTR, - US PREG UT TRANSVAGINAL, - DUP AB/PEL/SC COMP Technique: Grayscale images, color doppler, and spectral doppler images of the uterus and ovaries were obtained utilizing A transabdominal and transvaginal approach. Comparison study: CT abdomen and pelvis August 08, 2019 FINDINGS: Uterus: size: 10.2 x 5.7 x 6.7 cm using transabdominal measurements Round hypoechogenicity in the endometrial canal measuring 4.9 mm in size is present and may correspond to a gestational sac. Right ovary: size: 3.7 x 2.2 x 3.4 cm cysts/masses: None Doppler findings: Normal arterial and venous waveforms. adnexal masses: None Left ovary: Not visualized however no mass or collection is seen in the left adnexa Free fluid: No fluid seen in the cul-de-sac. IMPRESSION: Intrauterine with estimated gestational age 5 weeks +/-3 days. Location: at 1733 Reported and signed by: Nolan Moraes MD PAGE 1 Signed Report (CONTINUED) Name: JADE HUGHES [facility] : 1985 Age/S: 34 / F [address] [facility] Unit #: [id number] Loc: [place], [place] [address] Phys: Roya Carpenter SPONGE HOOKER Acct: V [id number] Dis Date: Status: REG ER PHONE #: [phone] Exam Date: 10/07/2019 1701 F AX #: [phone] Reason: VAGINAL BLEEDING/PELVIC PAIN EXAMS: CPT CODE: [id number] US PREG 1ST TRIMTR 07420 <Continued> CC: Patrick Woodward SPONGE HOOKER; Roya Carpenter SPONGE HOOKER; Jessica Brooke MD Technologist: Evelina Noonan [facility] [place] Trnscb Date/Time: 10/07/2019 (1732) [email or web address] Orig Print D/T: S: 10/07/2019 (1736) Probe: PAGE 2 Signed Report BASIC METABOLIC PANEL 2019-10-07 17:25:00* Test Item Value Reference Range Interpretation Comments SODIUM (test code = NA) 138 mmol/L 135-148 N POTASSIUM (test code = K) 3.7 mmol/L 3.5-5.1 N CHLORIDE (test code = CL) 102 mmol/L 101-109 N CARBON DIOXIDE (test code = CO2) 26.9 mmol/L 21-32 N ANION GAP (test code = GAP) 13 mmol/L 10-20 N GLUCOSE (test code = GLU) 90 mg/dL 74-106 N BLOOD UREA NITROGEN (test code = BUN) 11 mg/dL 3-21 N GLOMERULAR FILTRATION RATE (test code = GFR) > 60 mL/min >=60 Estimated GFR by using Modified MDRD formula.Chronic kidney disease is defined as either kidney damageor GFR <60 mL/min/1.73 m2 for >3 months. CREATININE (test code = CREAT) 0.56 mg/dL 0.55-1.3 N BUN/CREATININE RATIO (test code = BUN/CREA) 19.6 10-20 N CALCIUM (test code = CA) 8.6 mg/dL 8.4-10.2 N HCG SERUM [id number] 17:25:00* Test Item Value Reference Range Interpretation Comments HCG SERUM BETA (test code = HCG) 1849.0 mIU/ml 0-5.0 H INTERPRETATION:B-HCG LEVELS <6 SHOULD BE CONSIDERED "NEGATIVE."VALUES BETWEEN 6-25 MIU/ML NEED TO BE RETESTED WITHIN 48hrs. 0-1 WEEKS AFTER CONCEPTION 0-50 MIU/ML1-2 WEEKS AFTER CONCEPTION 40-300 MIU/ML2-3 WEEKS AFTER CONCEPTION 100-1,000 MIU/ML3-4 WEEKS AFTER CONCEPTION 500-6,000 MIU/ML1-2 MONTHS AFTER CONCEPTION 5,000-200,000 MIU/ML2-3 MONTHS AFTER CONCEPTION 10,000-100,000 MIU/ML2ND TRIMESTER 3,000-50,000 MIU/ML3RD TRIMESTER 1,000-50,000 MIU/ML BASIC METABOLIC [id number] 16:56:00* Test Item Value Reference Range Interpretation Comments SODIUM (test code = NA) 138 mmol/L 135-148 N POTASSIUM (test code = K) 3.7 mmol/L 3.5-5.1 N CHLORIDE (test code = CL) 102 mmol/L 101-109 N CARBON DIOXIDE (test code = CO2) 26.9 mmol/L 21-32 N ANION GAP (test code = GAP) 13 mmol/L 10-20 N GLUCOSE (test code = GLU) 90 mg/dL 74-106 N BLOOD UREA NITROGEN (test code = BUN) 11 mg/dL 3-21 N GLOMERULAR FILTRATION RATE (test code = GFR) > 60 mL/min >=60 Estimated GFR by using Modified MDRD formula.Chronic kidney disease is defined as either kidney damageor GFR <60 mL/min/1.73 m2 for >3 months. CREATININE (test code = CREAT) 0.56 mg/dL 0.55-1.3 N BUN/CREATININE RATIO (test code = BUN/CREA) 19.6 10-20 N CALCIUM (test code = CA) 8.6 mg/dL 8.4-10.2 N HCG SERUM [id number] 16:56:00* Test Item Value Reference Range Interpretation Comments HCG SERUM BETA (test code = HCG) mIU/mL <10 CBC W/O [id number] 16:43:00* Test Item Value Reference Range Interpretation Comments WHITE BLOOD CELL (test code = WBC) 5.7 K/mm3 4.5-12.5 N RED BLOOD CELL (test code = RBC) 3.96 mill/mm3 3.7-5.2 N HEMOGLOBIN (test code = HGB) 10.4 gram/dL 11.5-15.5 L HEMATOCRIT (test code = HCT) 33.5 % 36.0-46.0 L MEAN CELL VOLUME (test code = MCV) 84.6 fL 80-98 N MEAN CELL HGB (test code = MCH) 26.3 picogram 27.0-33.0 L MEAN CELL HGB CONCETRATION (test code = MCHC) 31.0 gram/dL 33.0-36. 0 L RED CELL DISTRIBUTION WIDTH (test code = RDW) 14.1 % 11.6-16. 2 N RED CELL DISTRIBUTION WIDTH SD (test code = RDW-SD) 43.5 fL 37 .0-51.0 N PLATELET COUNT (test code = PLT) 266 K/mm3 150-450 N MEAN PLATELET VOLUME (test code = MPV) 10.7 fL 6.7-11.0 N URINALYSIS [id number] 15:45:00* Test Item Value Reference Range Interpretation Comments UA COLOR (test code = COLU) LIGHT YELLOW YELLOW UA APPEARANCE (test code = APPU) CLEAR CLEAR UA GLUCOSE DIPSTICK (test code = DGLUU) norm mg/dL NEGATIVE UA BILIRUBIN DIPSTICK (test code = BILU) NEGATIVE mg/dL NEGATIVE UA KETONE DIPSTICK (test code = KETU) neg mg/dL NEGATIVE UA SPECIFIC GRAVITY (test code = SGU) 1.005 1.001-1.035 UA BLOOD DIPSTICK (test code = NOÉ) 10 (Trace) Abdirashid/uL NEGATIVE A UA PH DIPSTICK (test code = KIMBERLY) 7.0 5.0-8.0 UA PROTEIN DIPSTICK (test code = PROU) neg mg/dL Neg-15 UA UROBILINIOGEN DIPSTICK (test code = URO) norm mg/dL 0.0-0.2 UA NITRITE DIPSTICK (test code = GARTH) NEGATIVE NEGATIVE UA LEUKOCYTE ESTERASE DIPSTICK (test code = LEUU) 25 Rosa/uL (Tra ce) uL NEGATIVE A UA WBC (test code = WBCU) 0-5 per HPF 0-5 UA RBC (test code = RBCU) 0-3 per HPF 0-5 UA EPITHELIAL CELLS (test code = EPIU) Few (2-5/hpf) per HPF Few UA BACTERIA (test code = BACU) FEW per HPF NONE Urine Source? Clean CatchUR HCG [id number] 15:45:00* Test Item Value Reference Range Interpretation Comments UR HCG QUAL (test code = HCGQLU) POSITIVE This HCGQL test is NOT applicable for MALE patients.Check with nurse about probable order error.If Tumor Marker Test needed, nurse should order test "HCGTU"(Test #[id number]) Urine Source? Clean Catch- CT ABD PELVIS [id number] 20:58:00 Name: JADE HUGHES [facility] : 1985 Age/S: 34 / F [address] [facility] Unit #: [id number] Loc: [place] [address] Phys: Cruz MD Acct: [id number] Di s Date: Status: REG ER PHONE #: [phone] Exam Date: 08/08/20192042 FAX #: Reason: Abd pain s/p surgery. EXAMS: CPT CODE: [id number] CT ABD PELVIS W/CONT 35018 REASON FOR EXAM: Abd pain s/p surgery. EXAM ORDER DATE: 08/08/2019 7:44 PM Ordering: Deonte Maradiaga MD Attending:Deonte Maradiaga MD Loca tion:[facility] PROCEDURE: - CT ABD PELVIS W/CONT COMPARIS ON: FINDINGS: CT images of the abdomen and pelvis were obtained wi th IV and without oral contrast at 5mm. Dose modulation, iterative r econstruction, and/or weight based adjustment of the MA/KV was utilized to reduce the radiation dose to as low as reasonably achievable. Intravenous contrast: 100cc of Omnipaque 370. The liver, sple en, pancreas are grossly within normal limits. The patient is status po st cholecystectomy The kidneys are within normal limits. The urin corina bladder is unremarkable. The colon, small bowel, and sto mach are within normal limits without evidence of obstruction. The append ix is not seen No evidence of free air or free fluid. The uterus is unremarkable. IMPRESSION: No acute findings in the abdomen at 2057 Reported and signed by: Kehinde Woodson M.D. CC: Deonte Maradiaga MD Technologist:TYRONE VELA RT(R),CT CTDI: DLP: Trnscb Date/Time: 08/08/2019 (2057) [email or web address] Orig Print D/T: S: 08/08/2019 (2100) PAGE 1 Signed Report BASIC METABOLIC [id number] 20:36:00* Test Item Value Reference Range Interpretation Comments SODIUM (test code = NA) 138 mmol/L 136-145 N POTASSIUM (test code = K) 3.8 mmol/L 3.5-5.1 N CHLORIDE (test code = CL) 99 mmol/L 101-109 L CARBON DIOXIDE (test code = CO2) 30.2 mmol/L 21-32 N ANION GAP (test code = GAP) 13 mmol/L 10-20 N GLUCOSE (test code = GLU) 99 mg/dL 74-106 N BLOOD UREA NITROGEN (test code = BUN) 12 mg/dL 3-21 N GLOMERULAR FILTRATION RATE (test code = GFR) > 60 mL/min >=60 Estimated GFR by using Modified MDRD formula.Chronic kidney disease is defined as either kidney damageor GFR <60 mL/min/1.73 m2 for >3 months. CREATININE (test code = CREAT) 0.84 mg/dL 0.55-1.3 N BUN/CREATININE RATIO (test code = BUN/CREA) 14.3 10-20 N CALCIUM (test code = CA) 8.7 mg/dL 8.4-10.2 N HEPATIC FUNCTION [id number] 20:36:00* Test Item Value Reference Range Interpretation Comments TOTAL PROTEIN (test code = PROT) 7.8 g/dL 6.5-8.4 N ALBUMIN (test code = ALB) 4.2 g/dL 3.4-4.8 N GLOBULIN (test code = GLOB) 3.6 G/DL 1-10 N ALBUMIN/GLOBULIN RATIO (test code = A/G) 1.17 RATIO 0.75-1.50 N BILIRUBIN TOTAL (test code = BILT) 0.50 mg/dL 0.0-1.0 N BILIRUBIN DIRECT (test code = BILD) 0.20 mg/dL 0.0-0.30 N SGOT/AST (test code = AST) 23 U/L 6-32 N SGPT/ALT (test code = ALT) 21 U/L 12-78 N N ote: Change in REFERENCE RANGE due to new reagent method. ALKALINE PHOSPHATASE TOTAL (test code = ALKP) 69 U/L 38-126 N [id number] 20:36:00* Test Item Value Reference Range Interpretation Comments LIPASE (test code = LIP) 127 U/L 128-270 L HCG SERUM [id number] 20:36:00* Test Item Value Reference Range Interpretation Comments HCG SERUM QUAL (test code = HCGQL) NEGATIVE NEGATIVE This HCGQL test is NOT applicable for MALE patients.Check with nurse about probable order error.If Tumor Marker Test needed, nurse should order test "HCGTU"(Test #550.02869) BASIC METABOLIC [id number] 20:20:00* Test Item Value Reference Range Interpretation Comments SODIUM (test code = NA) 138 mmol/L 136-145 N POTASSIUM (test code = K) 3.8 mmol/L 3.5-5.1 N CHLORIDE (test code = CL) 99 mmol/L 101-109 L CARBON DIOXIDE (test code = CO2) 30.2 mmol/L 21-32 N ANION GAP (test code = GAP) 13 mmol/L 10-20 N GLUCOSE (test code = GLU) 99 mg/dL 74-106 N BLOOD UREA NITROGEN (test code = BUN) 12 mg/dL 3-21 N GLOMERULAR FILTRATION RATE (test code = GFR) > 60 mL/min >=60 Estimated GFR by using Modified MDRD formula.Chronic kidney disease is defined as either kidney damageor GFR <60 mL/min/1.73 m2 for >3 months. CREATININE (test code = CREAT) 0.84 mg/dL 0.55-1.3 N BUN/CREATININE RATIO (test code = BUN/CREA) 14.3 10-20 N CALCIUM (test code = CA) 8.7 mg/dL 8.4-10.2 N HEPATIC FUNCTION [id number] 20:20:00* Test Item Value Reference Range Interpretation Comments TOTAL PROTEIN (test code = PROT) gram/dL 6.4-8.2 ALBUMIN (test code = ALB) g/dL 3.4-5.0 GLOBULIN (test code = GLOB) g/dL 2.7-4.2 ALBUMIN/GLOBULIN RATIO (test code = A/G) 0.75-1.50 BILIRUBIN TOTAL (test code = BILT) mg/dL 0.2-1.2 BILIRUBIN DIRECT (test code = BILD) mg/dL 0.0-0.20 SGOT/AST (test code = AST) IUnit/L 15-37 SGPT/ALT (test code = ALT) U/L 10-69 ALKALINE PHOSPHATASE TOTAL (test code = ALKP) IUnit/L 45-117 [id number] 20:20:00* Test Item Value Reference Range Interpretation Comments LIPASE (test code = LIP) Unit/L 144-286 HCG SERUM [id number] 20:20:00* Test Item Value Reference Range Interpretation Comments HCG SERUM QUAL (test code = HCGQL) NEGATIVE NEGATIVE This HCGQL test is NOT applicable for MALE patients.Check with nurse about probable order error.If Tumor Marker Test needed, nurse should order test "HCGTU"(Test #550.94959) BASIC METABOLIC [id number] 20:19:00* Test Item Value Reference Range Interpretation Comments SODIUM (test code = NA) 138 mmol/L 136-145 N POTASSIUM (test code = K) 3.8 mmol/L 3.5-5.1 N CHLORIDE (test code = CL) 99 mmol/L 101-109 L CARBON DIOXIDE (test code = CO2) 30.2 mmol/L 21-32 N ANION GAP (test code = GAP) 13 mmol/L 10-20 N GLUCOSE (test code = GLU) 99 mg/dL 74-106 N BLOOD UREA NITROGEN (test code = BUN) 12 mg/dL 3-21 N GLOMERULAR FILTRATION RATE (test code = GFR) > 60 mL/min >=60 Estimated GFR by using Modified MDRD formula.Chronic kidney disease is defined as either kidney damageor GFR <60 mL/min/1.73 m2 for >3 months. CREATININE (test code = CREAT) 0.84 mg/dL 0.55-1.3 N BUN/CREATININE RATIO (test code = BUN/CREA) 14.3 10-20 N CALCIUM (test code = CA) 8.7 mg/dL 8.4-10.2 N HEPATIC FUNCTION [id number] 20:19:00* Test Item Value Reference Range Interpretation Comments TOTAL PROTEIN (test code = PROT) gram/dL 6.4-8.2 ALBUMIN (test code = ALB) g/dL 3.4-5.0 GLOBULIN (test code = GLOB) g/dL 2.7-4.2 ALBUMIN/GLOBULIN RATIO (test code = A/G) 0.75-1.50 BILIRUBIN TOTAL (test code = BILT) mg/dL 0.2-1.2 BILIRUBIN DIRECT (test code = BILD) mg/dL 0.0-0.20 SGOT/AST (test code = AST) IUnit/L 15-37 SGPT/ALT (test code = ALT) U/L 10-69 ALKALINE PHOSPHATASE TOTAL (test code = ALKP) IUnit/L 45-117 [id number] 20:19:00* Test Item Value Reference Range Interpretation Comments LIPASE (test code = LIP) Unit/L 144-286 HCG SERUM [id number] 20:19:00* Test Item Value Reference Range Interpretation Comments HCG SERUM QUAL (test code = HCGQL) NEGATIVE URINALYSIS [id number] 20:18:00* Test Item Value Reference Range Interpretation Comments UA COLOR (test code = COLU) YELLOW YELLOW UA APPEARANCE (test code = APPU) SLIGHT CLOUDY CLEAR A UA GLUCOSE DIPSTICK (test code = DGLUU) norm mg/dL NEGATIVE UA BILIRUBIN DIPSTICK (test code = BILU) NEGATIVE mg/dL NEGATIVE UA KETONE DIPSTICK (test code = KETU) 5 (Trace) mg/dL NEGATIVE A UA SPECIFIC GRAVITY (test code = SGU) 1.015 1.001-1.035 UA BLOOD DIPSTICK (test code = NOÉ) 10 (Trace) Abdirashid/uL NEGATIVE A UA PH DIPSTICK (test code = KIMBERYL) 6.5 5.0-8.0 UA PROTEIN DIPSTICK (test code = PROU) neg mg/dL Neg-15 UA UROBILINIOGEN DIPSTICK (test code = URO) norm mg/dL 0.0-0.2 UA NITRITE DIPSTICK (test code = GARTH) NEGATIVE NEGATIVE UA LEUKOCYTE ESTERASE DIPSTICK (test code = LEUU) 25 Rosa/uL (Tra ce) uL NEGATIVE A UA WBC (test code = WBCU) 3-5 per HPF 0-5 UA RBC (test code = RBCU) 0-3 per HPF 0-5 UA EPITHELIAL CELLS (test code = EPIU) Few (2-5/hpf) per HPF Few UA BACTERIA (test code = BACU) MODERATE per HPF NONE A UA MUCUS (test code = MUCU) FEW per LPF NONE-FEW Urine Source? Clean CatchURINALYSIS [id number] 20:15:00* Test Item Value Reference Range Interpretation Comments UA COLOR (test code = COLU) YELLOW YELLOW UA APPEARANCE (test code = APPU) SLIGHT CLOUDY CLEAR A UA GLUCOSE DIPSTICK (test code = DGLUU) norm mg/dL NEGATIVE UA BILIRUBIN DIPSTICK (test code = BILU) NEGATIVE mg/dL NEGATIVE UA KETONE DIPSTICK (test code = KETU) 5 (Trace) mg/dL NEGATIVE A UA SPECIFIC GRAVITY (test code = SGU) 1.015 1.001-1.035 UA BLOOD DIPSTICK (test code = NOÉ) 10 (Trace) Abdirashid/uL NEGATIVE A UA PH DIPSTICK (test code = KIMBERLY) 6.5 5.0-8.0 UA PROTEIN DIPSTICK (test code = PROU) neg mg/dL Neg-15 UA UROBILINIOGEN DIPSTICK (test code = URO) norm mg/dL 0.0-0.2 UA NITRITE DIPSTICK (test code = GARTH) NEGATIVE NEGATIVE UA LEUKOCYTE ESTERASE DIPSTICK (test code = LEUU) 25 Rosa/uL (Tra ce) uL NEGATIVE A UA WBC (test code = WBCU) per HPF 0-5 UA RBC (test code = RBCU) per HPF 0-5 UA EPITHELIAL CELLS (test code = EPIU) per HPF Few UA BACTERIA (test code = BACU) per HPF NONE Urine Source? Clean CatchCBC W/O [id number] 20:12:00* Test Item Value Reference Range Interpretation Comments WHITE BLOOD CELL (test code = WBC) 7.4 K/mm3 4.5-12.5 N RED BLOOD CELL (test code = RBC) 4.09 mill/mm3 3.7-5.2 N HEMOGLOBIN (test code = HGB) 10.6 gram/dL 11.5-15.5 L HEMATOCRIT (test code = HCT) 34.8 % 36.0-46.0 L MEAN CELL VOLUME (test code = MCV) 85.1 fL 80-98 N MEAN CELL HGB (test code = MCH) 25.9 picogram 27.0-33.0 L MEAN CELL HGB CONCETRATION (test code = MCHC) 30.5 gram/dL 33.0-36. 0 L RED CELL DISTRIBUTION WIDTH (test code = RDW) 13.7 % 11.6-16. 2 N RED CELL DISTRIBUTION WIDTH SD (test code = RDW-SD) 43.2 fL 37 .0-51.0 N PLATELET COUNT (test code = PLT) 279 K/mm3 150-450 N MEAN PLATELET VOLUME (test code = MPV) 11.0 fL 6.7-11.0 N [id number] 13:09:00 RUN DATE: 07/26/19 [employer] [facility] PAGE 1 RUN TIME: 1309 Specimen Inqui ry RUN USER: INTERFACE PATIENT: JADE HUGHES ACCT #: [id number] LOC: DEBBIE U #: [id number] AGE/SX: 33/F ROOM: [facility] RE07/25/19REG DR: Francois Tsai MD : 83 BED: A DIS: STATUS: ADM IN TLOC: SPEC #: [id number] RECD: 07/25/19 STATUS: [facility] #: [id number] NGUYEN: 07/25/19- SUBM DR: Francois Tsai MD ENTERED: 07/25/19 SP TYPE: GALLBLADD OTHR DR: No Ene alex or Family Physician Vidya Payne MD, Nkoli I MDORDERED: GROSS COPIES TO: No Primary or Family Physician Francois Tsai MD [address] [place] [address] Vidya Payne MD [address] [place] [address] Madison Delatorre MD [address] [place] [address] MARKERS: ABNORMAL TISSUE, GALLBLADDER PROCEDURES: GROSS (07/26/19-1148) TIS SUES: GALLBLADDER, NOS CLINICAL HISTORY COLLECTION DATE: CHOLECYSTITIS FINAL DIAGNOSIS Gallbladder, cholecystectom y: MILD CHRONIC CHOLECYSTITIS NEGATIVE FOR MALIGNANCY D MW/sm CONTINUED ON NEXT PAGE RU N DATE: 07/26/19 [facility] - Lab PAGE 2 RUN TIME: 1309 Specimen Inquiry RUN USER: INTERFACE SPEC #: [id number] PATIENT: JADE HUGHES #[id number] (Continued) FINAL DIAGNOSIS (Co ntinued) A [id number] MACROSCOPIC The specimen is received in [facility], labeled with the patient's name, and identified as "gallbladder". It consists of an intact gallbladder with a smooth green serosal surface. The sp ecimen measures 7 cm in length with diameter up to 3.5 cm. A 1.2 cm segment o f duct is present. The lumen is filled with green bile but no stones are iden tified. The mucosal surface is dark green-brown and velvety. The gallbladder wall measures up to 0.2 cm in thickness. No nodules or masses are identified. Case Packer tissue is submitted in a single cassette. GROSS PE RFORMED AT [facility] [address] [place] [address] (P)[phone] MICROSCOPIC All of the stains, including any controls performed, stain appropriately. MICROSCOPIC PERFORMED AT [facility] [address] [place] [address] (P)[phone] PERFO RMING SITE Diagnosis performed at: [facility] [address] [facility] [place] [phone] Signed SIGNATURE ON FILE Day Roach MD 07/26/19 1309 END OF REPORT Novel Coronavirus 2019 [id number] 18:18:00* Test Item Value Reference Range Interpretation Comments Novel Coronavirus 2018 Inhouse (test code = COVNONPUI) Negative Negative Testing Criteria: Preprocedure ScreeningNovel Coronavirus 2019 Inhouse 2019-07-25 18:18:00* Test Item Value Reference Range Interpretation Comments Novel Coronavirus 2019 Inhouse (test code = COVNONPUI) Negative Negative Testing Criteria: Preprocedure Screening- MRI ABDOMEN W/O [id number] 09:51:00 FAX: Francois Tsai MD [phone] [place]: [address] St: ADM FAX: Vidya Rizvi MD [phone] FAX: Madison Delatorre MD Name: JADE HUGHES [facility] : 1985 Age/S: 33/F [address] [facility] Unit #: [id number] Loc: V.30[address] [place], [place] [address] Phys: Vidya Payne MD Acct: [id number] Dis Date: Status: ADM IN ONE #: [phone] Exam Date: 07/25/2019914 FAX #: [phone] Reason: pt with dilated biliary ducts on CT EXAMS: CPT CODE: [id number] MR I ABDOMEN W/O CONT 83064 HISTORY: pt wi th dilated biliary ducts on CT TECHNIQUE: Magnetic resonance chola ngiopancreatography (MRCP) -- Coronal thin slab MIP and radial thick slab MIP images through the biliary tree; supplemental axial T2 haste through t he upper abdomen. COMPARISON: None FINDINGS: Gallbl adder is unremarkable. Common duct and intrahepatic biliary ducts are norm al caliber. No abnormal filling defects identified within the biliary tree . Normal caliber pancreatic duct is visualized. IM PRESSION: 1. Negative MRCP. Location: [facility] at 0951 Reported and signed by: Nolan Moraes MD CC: Francois Anguiano MD; Vidya Payne MD; Madison Delatorre MD Technologist: Jhon Palacios)(MR) Trnscrd Date/Time/By: 07/25/2019 (090 1) : By: [id number] Orig Print D/T: S: 07/25/2019 (5221) PAGE 1 Signed Report Coronavirus 2019 nCoV [id number] 09:08:00* Test Item Value Reference Range Interpretation Comments Coronavirus 2019 nCoV Bedside (test code = COVNONPUIBED) Negative BASIC METABOLIC [id number] 05:57:00* Test Item Value Reference Range Interpretation Comments SODIUM (test code = NA) 141 mmol/L 136-145 N POTASSIUM (test code = K) 3.9 mmol/L 3.5-5.1 N CHLORIDE (test code = CL) 110.0 mmol/L 98-107 H CARBON DIOXIDE (test code = CO2) 25.0 mmol/L 21-32 N ANION GAP (test code = GAP) 9.9 10-20 L GLUCOSE (test code = GLU) 92 mg/dL 74-106 N BLOOD UREA NITROGEN (test code = BUN) 7 mg/dL 7-18 N GLOMERULAR FILTRATION RATE (test code = GFR) > 60 mL/min >=60 Estimated GFR by using Modified MDRD formula.Chronic kidney disease is defined as either kidney damageor GFR <60 mL/min/1.73 m2 for >3 months. CREATININE (test code = CREAT) 0.40 mg/dL 0.55-1.02 L Note change in reference range due to change in reagent. BUN/CREATININE RATIO (test code = BUN/CREA) 17.5 10-20 N CALCIUM (test code = CA) 8.3 mg/dL 8.5-10.1 L CBC W/AUTO [id number] 05:43:00* Test Item Value Reference Range Interpretation Comments WHITE BLOOD CELL (test code = WBC) 5.5 K/mm3 4.5-12.5 N RED BLOOD CELL (test code = RBC) 3.88 mill/mm3 3.7-5.2 N HEMOGLOBIN (test code = HGB) 10.2 gram/dL 11.5-15.5 L HEMATOCRIT (test code = HCT) 32.9 % 36.0-46.0 L MEAN CELL VOLUME (test code = MCV) 84.8 fL 80-98 N MEAN CELL HGB (test code = MCH) 26.3 picogram 27.0-33.0 L MEAN CELL HGB CONCETRATION (test code = MCHC) 31.0 gram/dL 33.0-36. 0 L RED CELL DISTRIBUTION WIDTH (test code = RDW) 13.9 % 11.6-16. 2 N RED CELL DISTRIBUTION WIDTH SD (test code = RDW-SD) 42.6 fL 37 .0-51.0 N PLATELET COUNT (test code = PLT) 224 K/mm3 150-450 N MEAN PLATELET VOLUME (test code = MPV) 10.9 fL 6.7-11.0 N NEUTROPHIL % (test code = NT%) 51.5 % 39.0-69.0 N IMMATURE GRANULOCYTE % (test code = IG%) 0.2 % 0.0-5.0 N LYMPHOCYTE % (test code = LY%) 38.2 % 25.0-55.0 N MONOCYTE % (test code = MO%) 6.0 % 0.0-10.0 N EOSINOPHIL % (test code = EO%) 3.7 % 0.0-5.0 N BASOPHIL % (test code = BA%) 0.4 % 0.0-1.0 N NUCLEATED RBC % (test code = NRBC%) 0.0 % 0-0 N NEUTROPHIL # (test code = NT#) 2.82 K/mm3 1.8-7.7 N IMMATURE GRANULOCYTE # (test code = IG#) 0.01 x10 3/uL 0-0.03 N LYMPHOCYTE # (test code = LY#) 2.09 K/mm3 1.0-5.0 N MONOCYTE # (test code = MO#) 0.33 K/mm3 0-0.8 N EOSINOPHIL # (test code = EO#) 0.20 K/mm3 0.0-0.5 N BASOPHIL # (test code = BA#) 0.02 K/mm3 0.0-0.2 N NUCLEATED RBC # (test code = NRBC#) 0.00 K/mm3 0.0-0.1 N MANUAL DIFF REQUIRED (test code = MDIFF) NO - HEPA IMAG INCL GB W [id number] 14:00:00 FAX: Vidya Rizvi MD [phone] [place]: B St: [facility] FAX: Madison Delatorre MD Name: JADE HUGHES [facility] : 1985 Age/S: 33/F [address] [facility]: [id number] Loc: [id number] [place] [address] Phys: iVdya Payne MD Acct: [id number] Dis Date: Status: ADM IN PHONE #: [phone] Exam Date: 07/24/2019 1349 FAX #: [phone] Reason: abdominal pain EXAMS: CPT CODE: [id number] HEPA IMAG INCL GB W PHA [id number] HISTORY: abdominal pain EXAM: NUCLEAR MEDICINE HE PATOBILIARY SCAN. TECHNIQUE: After IV injection of 4.5 mCi Tc 99m Choletec, sequential planar images were obtained over the upper abdomen o ut to 60 minutes. FINDINGS: Homogeneous distribution of radiophar maceutical in the liver. Normal accumulation of radiopharmaceutical in the gallbladder by 45 minutes. Normal accumulation of radiopharmaceutical in small bowel by 30 minutes. Gallbladder ejection fraction is markedly reduc ed measuring maximum of 11%. IMPRESSION: 1. No evidence of acute cholecystitis or biliary obstruction. 2. Gall bladder dyskinesia. Location: [facility] Electronically S igned by Nolan Moraes MD on 07/24/2019 at 1400 Reported a nd signed by: Nolan Moraes MD CC: Vidya Payne MD; Madison Delatorre MD Technologist: MURALI HODGE Trnscrd Date/Time/By: 07/24/2019 (1400) : By: [email or web address] Orig Print D/T: S: 07/24/2019 (9831) PAGE 1 Signed Report - CT ABD PELVIS W/CONT 2019-07-24 06:44:00 Name: JADE HUGHES [facility] : 1985 Age/S: 33 / F [address] [facility] Unit #: [id number] Loc: [place] [address] Phys: MorganJennifer DO Acct: [id number] Dis Date: Status: REG ER PHONE #: [phone] Exam Date: 07/24/2019 0614 FAX #: [phone] Reason: abd pain, r/o pancreatitis EXAMS: CPT CODE: [id number] CT ABD PELVIS W/CONT 40453 AFTER HOURS SERVICE ON: 07/24/2019 6:[address] Scan of the Abdomen and Pelvis With Contrast Location Code M12 History: abd pain, r/o pancreatitis Technique: Axial and reconstructed coronal scans were performed on a helical scanner post IV contrast. Delayed scans were also obtained. One or more of the following dose reduction techniques were used: Automated exposure control, adjustment of the mA and/or kV according to patient size, and/or utilization of iterative reconstruction technique. Findings: There is a 2 small to characterize subcentimeter hypodense lesion in the lateral segment of the left hepatic lobe measuring 5.6 mm. Gallbladder is dilated. CBD is dilated as well as the intrahepatic ducts. There is trace pericholecystic fluid. There are no peripancreatic inflammatory changes. Spleen is unremarkable. Kidneys and adrenal glands are unremarkable. There is no hydronephrosis. Bladder is unremarkable. There is trace fluid in the cul-de-sac. There is a 4 cm right ovarian cyst. Small diverticulum is noted in the sigmoid colon without evidence of diverticulitis. Small bowel loops and colon are otherwise within normal limits. There is no bowel obstruction or free air. The appendix is not visualized. IMPRESSION: Gallbladder hydrops, biliary dilatation and trace pericholecystic fluid. Further evaluation with ultrasound is recommended. No peripancreatic inflammatory changes. Mild diverticulosis coli without diverticulitis. Small 4 cm right ovarian cyst. Trace physiologic amount of free fluid in the cul-de-sac. PAGE 1 Signed Report (CONTINUED) Name: JADE PEREZ [facility] : [birth year] Age/S: 33 / F [address] [facility] Unit #: [id number] Loc: [place] [address] Phys: Jennifer Mora DO Acct: [id number] Dis Date: Status: REG ER PHONE #: [phone] Exam Date: 07/24/2019613 FAX #: [phone] Reason: abd pain, r/o pancreatitis EXAMS: CPT CODE: [id number] CT ABD PELVIS W/CONT 58102 <Continued> at 0644 Reported and signed by: Billy Lester M.D. CC: Jennifer Mora DO Technologist:TYRONE VELA RT(R),CT CTDI: DLP: Trnscb Date/Time: 07/24/2019 (643) [email or web address] Orig Print D/T: S: 07/24/2019 (3309) PAGE 2 Signed Report BASIC METABOLIC [id number] 05:47:00* Test Item Value Reference Range Interpretation Comments SODIUM (test code = NA) 141 mmol/L 135-148 N POTASSIUM (test code = K) 3.7 mmol/L 3.5-5.1 N CHLORIDE (test code = CL) 106 mmol/L 101-109 N CARBON DIOXIDE (test code = CO2) 27.9 mmol/L 21-32 N ANION GAP (test code = GAP) 11 mmol/L 10-20 N GLUCOSE (test code = GLU) 99 mg/dL 74-106 N BLOOD UREA NITROGEN (test code = BUN) 12 mg/dL 3-21 N GLOMERULAR FILTRATION RATE (test code = GFR) > 60 mL/min >=60 Estimated GFR by using Modified MDRD formula.Chronic kidney disease is defined as either kidney damageor GFR <60 mL/min/1.73 m2 for >3 months. CREATININE (test code = CREAT) 0.59 mg/dL 0.55-1.3 N BUN/CREATININE RATIO (test code = BUN/CREA) 20.3 10-20 H CALCIUM (test code = CA) 7.3 mg/dL 8.4-10.2 L HEPATIC FUNCTION [id number] 05:47:00* Test Item Value Reference Range Interpretation Comments TOTAL PROTEIN (test code = PROT) 5.8 g/dL 6.5-8.4 L ALBUMIN (test code = ALB) 3.2 g/dL 3.4-4.8 L GLOBULIN (test code = GLOB) 2.6 G/DL 1-10 N ALBUMIN/GLOBULIN RATIO (test code = A/G) 1.2 RATIO 0.75-1.50 N BILIRUBIN TOTAL (test code = BILT) 0.30 mg/dL 0.0-1.0 N BILIRUBIN DIRECT (test code = BILD) 0.10 mg/dL 0.0-0.30 N SGOT/AST (test code = AST) 13 U/L 6-32 N SGPT/ALT (test code = ALT) 14 U/L 12-78 N N ote: Change in REFERENCE RANGE due to new reagent method. ALKALINE PHOSPHATASE TOTAL (test code = ALKP) 44 U/L 38-126 N [id number] 05:47:00* Test Item Value Reference Range Interpretation Comments LIPASE (test code = LIP) 152 U/L 128-270 N HCG SERUM [id number] 05:47:00* Test Item Value Reference Range Interpretation Comments HCG SERUM QUAL (test code = HCGQL) NEGATIVE NEGATIVE This HCGQL test is NOT applicable for MALE patients.Check with nurse about probable order error.If Tumor Marker Test needed, nurse should order test "HCGTU"(Test #550.93889) BASIC METABOLIC [id number] 05:41:00* Test Item Value Reference Range Interpretation Comments SODIUM (test code = NA) 141 mmol/L 135-148 N POTASSIUM (test code = K) 3.7 mmol/L 3.5-5.1 N CHLORIDE (test code = CL) 106 mmol/L 101-109 N CARBON DIOXIDE (test code = CO2) 27.9 mmol/L 21-32 N ANION GAP (test code = GAP) 11 mmol/L 10-20 N GLUCOSE (test code = GLU) 99 mg/dL 74-106 N BLOOD UREA NITROGEN (test code = BUN) 12 mg/dL 3-21 N GLOMERULAR FILTRATION RATE (test code = GFR) > 60 mL/min >=60 Estimated GFR by using Modified MDRD formula.Chronic kidney disease is defined as either kidney damageor GFR <60 mL/min/1.73 m2 for >3 months. CREATININE (test code = CREAT) 0.59 mg/dL 0.55-1.3 N BUN/CREATININE RATIO (test code = BUN/CREA) 20.3 10-20 H CALCIUM (test code = CA) 7.3 mg/dL 8.4-10.2 L HEPATIC FUNCTION [id number] 05:41:00* Test Item Value Reference Range Interpretation Comments TOTAL PROTEIN (test code = PROT) 5.8 g/dL 6.5-8.4 L ALBUMIN (test code = ALB) 3.2 g/dL 3.4-4.8 L GLOBULIN (test code = GLOB) 2.6 G/DL 1-10 N ALBUMIN/GLOBULIN RATIO (test code = A/G) 1.2 RATIO 0.75-1.50 N BILIRUBIN TOTAL (test code = BILT) 0.30 mg/dL 0.0-1.0 N BILIRUBIN DIRECT (test code = BILD) 0.10 mg/dL 0.0-0.30 N SGOT/AST (test code = AST) 13 U/L 6-32 N SGPT/ALT (test code = ALT) 14 U/L 12-78 N N ote: Change in REFERENCE RANGE due to new reagent method. ALKALINE PHOSPHATASE TOTAL (test code = ALKP) 44 U/L 38-126 N [id number] 05:41:00* Test Item Value Reference Range Interpretation Comments LIPASE (test code = LIP) 152 U/L 128-270 N HCG SERUM [id number] 05:41:00* Test Item Value Reference Range Interpretation Comments HCG SERUM QUAL (test code = HCGQL) NEGATIVE URINALYSIS [id number] 05:03:00* Test Item Value Reference Range Interpretation Comments UA COLOR (test code = COLU) YELLOW YELLOW UA APPEARANCE (test code = APPU) CLEAR CLEAR UA GLUCOSE DIPSTICK (test code = DGLUU) norm mg/dL NEGATIVE UA BILIRUBIN DIPSTICK (test code = BILU) NEGATIVE mg/dL NEGATIVE UA KETONE DIPSTICK (test code = KETU) neg mg/dL NEGATIVE UA SPECIFIC GRAVITY (test code = SGU) 1.020 1.001-1.035 UA BLOOD DIPSTICK (test code = NOÉ) neg Abdirashid/uL NEGATIVE UA PH DIPSTICK (test code = KIMBERLY) 6.5 5.0-8.0 UA PROTEIN DIPSTICK (test code = PROU) neg mg/dL Neg-15 UA UROBILINIOGEN DIPSTICK (test code = URO) norm mg/dL 0.0-0.2 UA NITRITE DIPSTICK (test code = GARTH) NEGATIVE NEGATIVE UA LEUKOCYTE ESTERASE DIPSTICK (test code = LEUU) 25 Rosa/uL (Tra ce) uL NEGATIVE A UA WBC (test code = WBCU) per HPF 0-5 UA RBC (test code = RBCU) per HPF 0-5 UA EPITHELIAL CELLS (test code = EPIU) per HPF Few UA BACTERIA (test code = BACU) per HPF NONE Urine Source? Clean CatchURINALYSIS [id number] 05:03:00* Test Item Value Reference Range Interpretation Comments UA COLOR (test code = COLU) YELLOW YELLOW UA APPEARANCE (test code = APPU) CLEAR CLEAR UA GLUCOSE DIPSTICK (test code = DGLUU) norm mg/dL NEGATIVE UA BILIRUBIN DIPSTICK (test code = BILU) NEGATIVE mg/dL NEGATIVE UA KETONE DIPSTICK (test code = KETU) neg mg/dL NEGATIVE UA SPECIFIC GRAVITY (test code = SGU) 1.020 1.001-1.035 UA BLOOD DIPSTICK (test code = NOÉ) neg Abdirashid/uL NEGATIVE UA PH DIPSTICK (test code = KIMBERLY) 6.5 5.0-8.0 UA PROTEIN DIPSTICK (test code = PROU) neg mg/dL Neg-15 UA UROBILINIOGEN DIPSTICK (test code = URO) norm mg/dL 0.0-0.2 UA NITRITE DIPSTICK (test code = GARTH) NEGATIVE NEGATIVE UA LEUKOCYTE ESTERASE DIPSTICK (test code = LEUU) 25 Rosa/uL (Tra ce) uL NEGATIVE A UA WBC (test code = WBCU) 3-5 per HPF 0-5 UA RBC (test code = RBCU) 0-2 per HPF 0-5 UA EPITHELIAL CELLS (test code = EPIU) Rare (0-1/hpf) per HPF Few UA BACTERIA (test code = BACU) TRACE per HPF NONE UA MUCUS (test code = MUCU) MODERATE per LPF NONE-FEW A Urine Source? Clean CatchCBC W/O [id number] 04:57:00* Test Item Value Reference Range Interpretation Comments WHITE BLOOD CELL (test code = WBC) 6.7 K/mm3 4.5-12.5 N RED BLOOD CELL (test code = RBC) 3.99 mill/mm3 3.7-5.2 N HEMOGLOBIN (test code = HGB) 10.8 gram/dL 11.5-15.5 L HEMATOCRIT (test code = HCT) 34.0 % 36.0-46.0 L MEAN CELL VOLUME (test code = MCV) 85.2 fL 80-98 N MEAN CELL HGB (test code = MCH) 27.1 picogram 27.0-33.0 N MEAN CELL HGB CONCETRATION (test code = MCHC) 31.8 gram/dL 33.0-36. 0 L RED CELL DISTRIBUTION WIDTH (test code = RDW) 13.6 % 11.6-16. 2 N RED CELL DISTRIBUTION WIDTH SD (test code = RDW-SD) 42.5 fL 37 .0-51.0 N PLATELET COUNT (test code = PLT) 251 K/mm3 150-450 N MEAN PLATELET VOLUME (test code = MPV) 11.6 fL 6.7-11.0 H - XR KNEE 3 V [id number] 21:25:00 Name: JADE HUGHES [facility] : 1985 Age/S:32 /F [address] [facility] Unit#:[id number] Loc: [place] [address] Phys: Jose Cook MD Dis Date: PHONE #: [phone] Status: REG ER FAX #: [phone] Exam Date: 07/14/2018 Reason: INJURY EXAMS: CPT CODE: [id number] XR KNEE 3 V RT [id number] REASON FOR EXAM: INJURY EXAM ORDER DATE: 07/14/2018 8:45 PM Ordering MTeresa.: Jose Cook MD PROCEDURE: - XR KNEE 3 V RT FINDINGS: 4 views of the right knee were obtained. The osseous structures are unremarkable in size and shape. The joint spaces are maintained. No evidence of fracture. No evidence of joint effusion. The patella is intact IMPRESSION: Unremarkable right knee at 2124 Reported and signed by: Kehinde Woodson M.D. CC: Jose Cook MD Technologist: ALANA THORPE RT(R),RDMS,CT Trnscrpt Data: 07/14/2018 (2124) Brady Orig Print D/T: S: 07/14/2018 (2127) PAGE 1 Signed Report - XR KNEE 3 V [id number] 21:24:00 [facility] 1985 Age/S:32 /F [address] [facility] Unit#:[id number] Loc: [place] [address] Phys: Kavya Carpenter SPONGE HOOKER Dis Date: PHONE #: [phone] Status: REG ER FAX #: [phone] Exam Date: 07/14/2018 Re ason: injury EXAMS: CPT CODE: [id number] XR KNEE 3 [place] LT [id number] REASON FOR E XAM: injury EXAM ORDER DATE: 07/14/2018 8:39 PM Order ing Stefano: Roya Carpenter NP PROCEDURE: - XR KNEE 3 V LT FINDINGS: 4 views of the left knee were obtained. The osseous st ructures are unremarkable in size and shape. The joint spaces are maintai yo. No evidence of fracture. No evidence of joint effusion. The patell a is intact IMPRESSION: Unremarkable left knee Elect ronically Signed by Stefano Woodson on 07/14/2018 at 2123 R eported and signed by: Kehinde Woodson M.D. CC: Jose Cook MD ; Roya Carpenter NP Technologist: ALANA THORPE RT(R),RDMS,CT Trnscrpt Data: 07/14/2018 (2123) t.[email or web address] Orig Print D/T: S: 07/14/2018 (2126) PAGE 1 Signed Report BASIC METABOLIC [id number] 23:20:00* Test Item Value Reference Range Interpretation Comments SODIUM (test code = NA) 145 mmol/L 136-145 N POTASSIUM (test code = K) 3.7 mmol/L 3.5-5.1 N CHLORIDE (test code = CL) 111.0 mmol/L 98-107 H CARBON DIOXIDE (test code = CO2) 26.0 mmol/L 21-32 N ANION GAP (test code = GAP) 11.7 10-20 N GLUCOSE (test code = GLU) 96 mg/dL 74-106 N BLOOD UREA NITROGEN (test code = BUN) 13 mg/dL 7-18 N GLOMERULAR FILTRATION RATE (test code = GFR) > 60 mL/min >=60 Estimated GFR by using Modified MDRD formula.Chronic kidney disease is defined as either kidney damageor GFR <60 mL/min/1.73 m2 for >3 months. CREATININE (test code = CREAT) 0.70 mg/dL 0.55-1.02 N Note change in reference range due to change in reagent. BUN/CREATININE RATIO (test code = BUN/CREA) 17.6 10-20 N CALCIUM (test code = CA) 8.5 mg/dL 8.5-10.1 N HEPATIC FUNCTION [id number] 23:20:00* Test Item Value Reference Range Interpretation Comments TOTAL PROTEIN (test code = PROT) 7.7 gram/dL 6.4-8.2 N ALBUMIN (test code = ALB) 4.0 g/dL 3.4-5.0 N GLOBULIN (test code = GLOB) 3.7 gram/dL 2.7-4.2 N ALBUMIN/GLOBULIN RATIO (test code = A/G) 1.1 0.75-1.50 N BILIRUBIN TOTAL (test code = BILT) 0.30 mg/dL 0.0-1.0 N BILIRUBIN DIRECT (test code = BILD) 0.09 mg/dL 0.0-0.20 N SGOT/AST (test code = AST) 15 IUnit/L 15-37 N SGPT/ALT (test code = ALT) 24 IUnit/L 12-78 N ALKALINE PHOSPHATASE TOTAL (test code = ALKP) 54 IUnit/L 45-117 N Note change in reference range due to change in reagent. [id number] 23:20:00* Test Item Value Reference Range Interpretation Comments LIPASE (test code = LIP) 149 U/L 73.0-393.0 N HCG SERUM [id number] 23:20:00* Test Item Value Reference Range Interpretation Comments HCG SERUM QUAL (test code = HCGQL) NEGATIVE NEGATIVE This HCGQL test is NOT applicable for MALE patients.Check with nurse about probable order error.If Tumor Marker Test needed, nurse should order test "HCGTU"(Test #550.08129) BASIC METABOLIC [id number] 23:12:00* Test Item Value Reference Range Interpretation Comments SODIUM (test code = NA) 145 mmol/L 136-145 N POTASSIUM (test code = K) 3.7 mmol/L 3.5-5.1 N CHLORIDE (test code = CL) 111.0 mmol/L 98-107 H CARBON DIOXIDE (test code = CO2) mmol/L 21-32 ANION GAP (test code = GAP) 10-20 GLUCOSE (test code = GLU) mg/dL 74-106 BLOOD UREA NITROGEN (test code = BUN) mg/dL 7-18 GLOMERULAR FILTRATION RATE (test code = GFR) mL/min >=60 CREATININE (test code = CREAT) mg/dL 0.55-1.02 BUN/CREATININE RATIO (test code = BUN/CREA) 10-20 CALCIUM (test code = CA) mg/dL 8.5-10.1 HEPATIC FUNCTION [id number] 23:12:00* Test Item Value Reference Range Interpretation Comments TOTAL PROTEIN (test code = PROT) gram/dL 6.4-8.2 ALBUMIN (test code = ALB) g/dL 3.4-5.0 GLOBULIN (test code = GLOB) gram/dL 2.7-4.2 ALBUMIN/GLOBULIN RATIO (test code = A/G) 0.75-1.50 BILIRUBIN TOTAL (test code = BILT) mg/dL 0.0-1.0 BILIRUBIN DIRECT (test code = BILD) mg/dL 0.0-0.20 SGOT/AST (test code = AST) IUnit/L 15-37 SGPT/ALT (test code = ALT) IUnit/L 12-78 ALKALINE PHOSPHATASE TOTAL (test code = ALKP) IUnit/L 45-117 [id number] 23:12:00* Test Item Value Reference Range Interpretation Comments LIPASE (test code = LIP) U/L 73.0-393.0 HCG SERUM [id number] 23:12:00* Test Item Value Reference Range Interpretation Comments HCG SERUM QUAL (test code = HCGQL) NEGATIVE NEGATIVE This HCGQL test is NOT applicable for MALE patients.Check with nurse about probable order error.If Tumor Marker Test needed, nurse should order test "HCGTU"(Test #550.06421) BASIC METABOLIC [id number] 23:11:00* Test Item Value Reference Range Interpretation Comments SODIUM (test code = NA) mmol/L 136-145 POTASSIUM (test code = K) mmol/L 3.5-5.1 CHLORIDE (test code = CL) mmol/L 98-107 CARBON DIOXIDE (test code = CO2) mmol/L 21-32 ANION GAP (test code = GAP) 10-20 GLUCOSE (test code = GLU) mg/dL 74-106 BLOOD UREA NITROGEN (test code = BUN) mg/dL 7-18 GLOMERULAR FILTRATION RATE (test code = GFR) mL/min >=60 CREATININE (test code = CREAT) mg/dL 0.55-1.02 BUN/CREATININE RATIO (test code = BUN/CREA) 10-20 CALCIUM (test code = CA) mg/dL 8.5-10.1 HEPATIC FUNCTION [id number] 23:11:00* Test Item Value Reference Range Interpretation Comments TOTAL PROTEIN (test code = PROT) gram/dL 6.4-8.2 ALBUMIN (test code = ALB) g/dL 3.4-5.0 GLOBULIN (test code = GLOB) gram/dL 2.7-4.2 ALBUMIN/GLOBULIN RATIO (test code = A/G) 0.75-1.50 BILIRUBIN TOTAL (test code = BILT) mg/dL 0.0-1.0 BILIRUBIN DIRECT (test code = BILD) mg/dL 0.0-0.20 SGOT/AST (test code = AST) IUnit/L 15-37 SGPT/ALT (test code = ALT) IUnit/L 12-78 ALKALINE PHOSPHATASE TOTAL (test code = ALKP) IUnit/L 45-117 [id number] 23:11:00* Test Item Value Reference Range Interpretation Comments LIPASE (test code = LIP) U/L 73.0-393.0 HCG SERUM [id number] 23:11:00* Test Item Value Reference Range Interpretation Comments HCG SERUM QUAL (test code = HCGQL) NEGATIVE NEGATIVE This HCGQL test is NOT applicable for MALE patients.Check with nurse about probable order error.If Tumor Marker Test needed, nurse should order test "HCGTU"(Test #550.54893) URINALYSIS [id number] 22:54:00* Test Item Value Reference Range Interpretation Comments UA COLOR (test code = COLU) YELLOW YELLOW UA APPEARANCE (test code = APPU) SLIGHTLY CLOUDY CLEAR A UA GLUCOSE DIPSTICK (test code = DGLUU) NEGATIVE mg/dL NEGATIVE UA BILIRUBIN DIPSTICK (test code = BILU) NEGATIVE mg/dL NEGATIVE UA KETONE DIPSTICK (test code = KETU) Negative mg/dL NEGATIVE UA SPECIFIC GRAVITY (test code = SGU) 1.024 1.001-1.035 UA BLOOD DIPSTICK (test code = NOÉ) Negative NEGATIVE UA PH DIPSTICK (test code = KIMBERLY) 7.0 5.0-8.0 UA PROTEIN DIPSTICK (test code = PROU) Negative mg/dL NEGATIVE UA UROBILINIOGEN DIPSTICK (test code = URO) NEGATIVE mg/dL NEGATIVE UA NITRITE DIPSTICK (test code = GARTH) NEGATIVE NEGATIVE UA LEUKOCYTE ESTERASE W REFLEX (test code = LEUUR) 3+ NEG ATIVE A UA WBC (test code = WBCU) 11-20 #/HPF 0-5 A UA RBC (test code = RBCU) 0-2 #/HPF 0-5 UA EPITHELIAL CELLS (test code = EPIU) FEW per HPF FEW UA MUCUS (test code = MUCU) FEW #/LPF FEW Urine Source? Clean CatchCBC W/O [id number] 22:51:00* Test Item Value Reference Range Interpretation Comments WHITE BLOOD CELL (test code = WBC) 6.2 K/mm3 4.5-12.5 N RED BLOOD CELL (test code = RBC) 4.15 mill/mm3 3.7-5.2 N HEMOGLOBIN (test code = HGB) 10.4 gram/dL 11.5-15.5 L HEMATOCRIT (test code = HCT) 35.9 % 36.0-46.0 L MEAN CELL VOLUME (test code = MCV) 86.5 fL 80-98 N MEAN CELL HGB (test code = MCH) 25.1 picogram 27.0-33.0 L MEAN CELL HGB CONCETRATION (test code = MCHC) 29.0 gram/dL 33.0-36. 0 L RED CELL DISTRIBUTION WIDTH (test code = RDW) 14.9 % 11.6-16. 2 N PLATELET COUNT (test code = PLT) 253 K/mm3 150-450 N MEAN PLATELET VOLUME (test code = MPV) 11.0 fL 6.7-11.0 N
== END 2019-12-31 22:34 | disposition home or self-care (01) ==
LOC: ER 21:07
DX: O26.91 Pregnancy related conditions, unspecified, first trimester (principal); O23.41 Unspecified infection of urinary tract in pregnancy, first trimester; R10.13 Epigastric pain; K29.70 Gastritis, unspecified, without bleeding
CPT/HCPCS: 36415; 80053; 81001; 82150; 83690; 85025; 99283; J2405